=== PATIENT | male | born 1945 | race Caucasian/White ===

== ENCOUNTER 2018-07-24 15:23 | Inpatient (IN) | payer MEDICARE, OTHER ==
[~2018-07-24] VITALS: Ht 180.3 cm; Wt 86.2 kg
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
--- NOTE | ~2018-07-24 | WRIGHTHP ---
[place], [place] PATIENT HISTORY AND PHYSICAL EXAM [id number] UNIT #: [id number] ROOM: 316 DOCTOR: RICKY LOVELACE MD BIRTHDATE: [birth year] DOS: 07/25/2018 INITIAL PSYCHIATRIC EVALUATION CHIEF COMPLAINT: "I do not know why I am here." HISTORY OF PRESENT ILLNESS: This is a 72-year-old white male who was residing at the [facility] in [place], an assisted living facility. The patient was found wandering around the assisted living in a very confused state and was very difficult to redirect. Additionally, he was found aggressively rubbing another patient's back while trying to pull her sweat shirt off. He was most recently started on Risperdal and Depakote, but began having facial swelling and pill rolling tremor with a shuffling gait. The patient has been increasingly more combative while at the assisted living facility and grossly confused. He is admitted now to rule out organic factors and to attempt to stabilize on medication. PAST MEDICAL HISTORY: Remarkable for vitamin D deficiency, hypertension, coronary artery disease, hyperlipidemia, and seizure disorder. This patient socially does not drink alcohol, smoke cigarettes or use illicit drugs. STRENGTHS: Good verbal skills, ambulatory. WEAKNESSES: Poor coping skills, poor support system. MENTAL STATUS: He is alert and oriented to person, possibly place, not to time. Mood does seem to be somewhat depressed with anxious overtones. He is perplexed and bewildered. There is no gross taylor, hypomania, or psychosis. He processes information slowly and short term memory is very problematic. DIAGNOSIS: Major depression, recurrent and impulse control disorder, not otherwise specified, and Alzheimer's dementia. PLAN: I have already started him on Exelon 4.6 and increased his Namenda. I will increase the Namenda now to 10 b.i.d. I did start him on Celexa 10 mg a day to decrease the sexual impulsivity and combat the depression. We will engage in individual and zavala milieu activity, returning to the least restrictive environment when psychiatrically stable. [place], [place] PATIENT HISTORY AND PHYSICAL EXAM NAME: TRISHA LUCIO UNIT #: [id number] ROOM: 316 DOCTOR: RICKY LOVELACE MD BIRTHDATE: [birth year] RICKY LOVELACE MD CM:HISPHYS:PATIENT HISTORY AND PHYSICAL EXAMINATION [id number] RICKY LOVELACE MD 07/25/18 1152 interface
[2018-07-24] MEDS ORDERED: VITAMIN D31000 UNI1 PO (15:35)
[2018-07-24] MEDS ORDERED: MYRBETRIQ50 M1 PO (15:36)
[2018-07-24] MEDS ORDERED: SIMVASTATIN20 MG PO (15:37)
[2018-07-24] MEDS ORDERED: METOPROLOL SUCC25 M2 PO (15:38)
[2018-07-24] MEDS ORDERED: LISINOPRIL40 MG PO (15:38)
[2018-07-24] MEDS ORDERED: CITALOPRAM10 MG PO (15:39)
[2018-07-24] MEDS ORDERED: ASPIR LOW81 MG PO (15:39)
[2018-07-24] MEDS ORDERED: IRON325 M1 PO (15:40)
[2018-07-24] MEDS ORDERED: TAMSULOSIN HCL0.4 MG PO (15:41)
[2018-07-24] MEDS ORDERED: FINASTERIDE5 M1 PO (15:41)
[2018-07-24] MEDS ORDERED: LEVETIRACETAM250 MG PO (15:42)
[2018-07-24] MEDS ORDERED: Topicort 0.05%15 GM T (15:42)
[2018-07-24 20:11] VITALS: BP 138/56
[2018-07-25 06:34] LABS: BASO % 0.3 % (0.0-1.0); EOS # 0.1 10*3/uL (0.0-0.4); EOS % 1.8 % (1.0-4.0); HEMATOCRIT 42.4 % (42.0-52.0); HEMOGLOBIN 13.7 g/dl (14.0-18.0); LYMPH # 0.8 10*3/uL (1.3-4.4); LYMPH % 12.6 % (27.0-41.0); MEAN CELL VOLUME 84.5 fl (80.0-94.0); MEAN CORPUSCULAR HGB 27.3 pg (27.0-31.0); MEAN CORPUSCULAR HGB CONC 32.3 g/dl (33.0-37.0); MEAN PLATELET VOLUME 10.3 fl (9.6-12.3); MONO # 0.4 10*3/uL (0.1-1.0); MONO % 7.4 % (3.0-9.0); NEUT # 4.6 10*3/uL (2.3-7.9); NEUT % 76.7 % (47.0-73.0); PLATELET COUNT AUTOMATED 223 10*3/uL (130-400); RED BLOOD COUNT 5.02 10*6/uL (4.50-5.90); RED CELL DISTRI WIDTH 13.1 % (0-14.5)
[2018-07-25 07:09] LABS: CHLORIDE 102 mmol/L (98-107); SODIUM 139 mmol/L (136-145)
[2018-07-25 07:30] LABS: ALBUMIN 3.6 gm/dl (3.1-4.5); ALKALINE PHOSPHATASE 106 U/L (45-117); BUN 14 mg/dl (7-24); CHOLESTEROL 152 mg/dL (<200); CREATININE 0.93 mg/dL (0.70-1.30); HDL CHOLESTEROL 58 mg/dl (40-60); LDL CHOLESTEROL 83 mg/dL (9-159); SGOT/AST 18 IU/L (3-35); SGPT/ALT 14 U/L (12-78); TOTAL PROTEIN 7.4 gm/dL (6.4-8.2); TRIGLYCERIDES 55 mg/dl (<150); VALPROIC ACID (DEPAKENE) 67.7 ug/ml (50-100); VLDL CHOLESTEROL 11 mg/dL (6-40)
[2018-07-25 07:52] LABS: VITAMIN D, 25-HYDROXY 26.6 ng/mL (30-100)
[2018-07-25 08:48] VITALS: BP 168/98
[2018-07-25 10:45] VITALS: BP 142/80
[2018-07-25 12:08] LABS: BILIRUBIN NEGATIVE (NEGATIVE); BLOOD TRACE-INTACT (NEGATIVE); CLARITY SL CLOUDY (CLEAR); COLOR YELLOW (YELLOW); GLUCOSE NEGATIVE (NEGATIVE); KETONE TRACE (NEGATIVE); LEUKO ESTERASE NEGATIVE (NEGATIVE); NITRITE NEGATIVE (NEGATIVE); PH 7.5 (5.0-9.0)
[2018-07-25 12:20] LABS: BACTERIA 2+; MUCOUS 1+; RBC 21-30 rbc/hpf (0-2)
[2018-07-25 20:00] VITALS: BP 124/80
[2018-07-26 08:09] VITALS: BP 132/79
[2018-07-26 20:16] VITALS: BP 146/80
[2018-07-27 08:04] VITALS: BP 140/82
[2018-07-27 12:04] LABS: LEVETIRACETAM (KEPPRA) 716936 4.1 ug/mL (10.0-40.0)
[2018-07-27 19:46] VITALS: BP 140/66
[2018-07-28 08:37] VITALS: BP 136/75
[2018-07-28 19:52] VITALS: BP 155/87
[2018-07-29 08:00] VITALS: BP 156/85
[2018-07-29 19:54] VITALS: BP 148/82
[2018-07-30 08:12] VITALS: BP 158/84
[2018-07-30] MEDS ORDERED: EXELON13.3 MG/21 T (10:41)
[2018-07-30] MEDS ORDERED: DIVALPROEX SOD250 MG PO (10:41)
[2018-07-30] MEDS ORDERED: MEMANTINE HCL10 MG PO (10:41)
[2018-07-30] MEDS ORDERED: CITALOPRAM20 MG PO (10:41)
[2018-07-30 19:55] VITALS: BP 158/84
== END 2018-07-30 19:58 | disposition home or self-care (01) | DRG 885 ==
LOC: 3N 15:23
PROVIDERS: Psychiatry & Neurology Psychiatry
DX: F33.9 Major depressive disorder, recurrent, unspecified (principal); I10 Essential (primary) hypertension; I25.10 Atherosclerotic heart disease of native coronary artery without angina pectoris; G40.909 Epilepsy, unspecified, not intractable, without status epilepticus; D64.9 Anemia, unspecified; J30.9 Allergic rhinitis, unspecified; N40.0 Benign prostatic hyperplasia without lower urinary tract symptoms; E55.9 Vitamin D deficiency, unspecified; M17.10 Unilateral primary osteoarthritis, unspecified knee; E78.00 Pure hypercholesterolemia, unspecified; F41.9 Anxiety disorder, unspecified; F02.80 Dementia in other diseases classified elsewhere, unspecified severity, without behavioral disturbance, psychotic disturbance, mood disturbance, and anxiety; C61 Malignant neoplasm of prostate; G30.9 Alzheimer's disease, unspecified; F63.9 Impulse disorder, unspecified; Z87.898 Personal history of other specified conditions; Z79.899 Other long term (current) drug therapy; Z79.82 Long term (current) use of aspirin

== ENCOUNTER 2018-10-31 18:38 | Emergency (ER) | payer MEDICARE, OTHER ==
[~2018-10-31] VITALS: Ht 180.3 cm; Wt 72.6 kg
--- NOTE | ~2018-10-31 | EKG ---
[employer], [place] ELECTROCARDIOGRAM REPORT NAME: TRISHA LUCIO UNIT #: [id number] ROOM: DOCTOR: EPIPHANY DRAFT REPORT BIRTHDATE: [birth year] [facility] Test Date: 2018-10-31 Test Time: 19:40:39 Pat Name: TRISHA LUCIO Department: Room: Gender: Cellar Pumper: FAHAD : 1945 Requested By: MARITZA PALACIOS PA-C Order Number: [id number] Reading MD: Measurements Intervals [place] Rate: 44 P: 42 MO: 152 QRS: 0 QRSD: 101 T: 12 QT: 501 QTc: 429 Interpretive Statements Sinus bradycardia Probable anteroseptal infarct, old No previous ECG available for comparison CM:EKGRPT:ELECTROCARDIOGRAM REPORT [id number] MARITZA PALACIOS PA-C EPIPHANY DRAFT REPORT MARITZA PALACIOS PA-C
[~2018-10-31 18:38] MED LIST: ASPIR LOW81 MG PO; CITALOPRAM10 MG PO; CITALOPRAM20 MG PO; DIVALPROEX SOD250 MG PO; EXELON13.3 MG/21 T; FINASTERIDE5 M1 PO; IRON325 M1 PO; LEVETIRACETAM250 MG PO; LISINOPRIL40 MG PO; MEMANTINE HCL10 MG PO; METOPROLOL SUCC25 M2 PO; MYRBETRIQ50 M1 PO; SIMVASTATIN20 MG PO; TAMSULOSIN HCL0.4 MG PO; Topicort 0.05%15 GM T; VITAMIN D31000 UNI1 PO
[2018-10-31 19:40] LABS: BASO % 0.3 % (0.0-1.0); EOS # 0.2 10*3/uL (0.0-0.4); EOS % 3.2 % (1.0-4.0); HEMATOCRIT 37.5 % (42.0-52.0); HEMOGLOBIN 12.1 g/dl (14.0-18.0); LYMPH # 1.2 10*3/uL (1.3-4.4); LYMPH % 20.1 % (27.0-41.0); MEAN CELL VOLUME 87.8 fl (80.0-94.0); MEAN CORPUSCULAR HGB 28.3 pg (27.0-31.0); MEAN CORPUSCULAR HGB CONC 32.3 g/dl (33.0-37.0); MEAN PLATELET VOLUME 10.4 fl (9.6-12.3); MONO # 0.5 10*3/uL (0.1-1.0); MONO % 7.9 % (3.0-9.0); NEUT % 67.7 % (47.0-73.0); PLATELET COUNT AUTOMATED 206 10*3/uL (130-400); RED BLOOD COUNT 4.27 10*6/uL (4.50-5.90); RED CELL DISTRI WIDTH 13.7 % (0-14.5); WHITE BLOOD COUNT 5.9 10*3/uL (4.8-10.8)
[2018-10-31 19:41] LABS: BILIRUBIN NEGATIVE (NEGATIVE); BLOOD NEGATIVE (NEGATIVE); CLARITY CLEAR (CLEAR); COLOR YELLOW (YELLOW); GLUCOSE NEGATIVE (NEGATIVE); KETONE TRACE (NEGATIVE); LEUKO ESTERASE NEGATIVE (NEGATIVE); NITRITE NEGATIVE (NEGATIVE); PH 6.5 (5.0-9.0); SPECIFIC GRAVITY 1.025 (1.005-1.030)
[2018-10-31 19:57] LABS: BACTERIA 2+; EPITHELIAL CELLS 0-2; WBC 0-2 wbc/hpf (0-5)
[2018-10-31 19:57] LABS: ACETAMINOPHEN (TYLENOL) 5.5 ug/ml (10-30); ALBUMIN 3.1 gm/dl (3.1-4.5); ALKALINE PHOSPHATASE 99 U/L (45-117); BUN 20 mg/dl (7-24); CHLORIDE 106 mmol/L (98-107); CREATININE 0.98 mg/dL (0.70-1.30); POTASSIUM 3.7 mmol/L (3.5-5.1); SGOT/AST 17 IU/L (3-35); SGPT/ALT 10 U/L (12-78); SODIUM 140 mmol/L (136-145)
[2018-10-31 20:03] LABS: ETHYL ALCOHOL < 3.0 mg/dl (<3)
[2018-10-31 20:13] LABS: URINE AMPHETAMINES < 1000 (1000ng/ml); URINE BARBITURATES < 200 (200ng/ml); URINE BENZODIAZEPINES > 200 (200ng/ml); URINE CANNABINOIDS (THC) < 50 (50ng/ml); URINE COCAINE < 300 (300ng/ml); URINE METHADONE < 300 (300ng/ml); URINE OPIATES < 300 (300ng/ml)
[2018-10-31 20:14] LABS: URINE PHENCYCLIDINE < 25 (25ng/ml)
[2018-10-31] MEDS ORDERED: ALPRAZOLAM0.5 M2 PO (20:33)
[2018-10-31] MEDS ORDERED: ZOLPIDEM10 MG PO (20:34)
[2018-10-31] MEDS ORDERED: LOPERAMIDE HCL2 MG PO (20:45)
[2018-10-31] MEDS ORDERED: RIVASTIGMINE TAR6 M1 PO (23:30)
[2018-10-31] MEDS ORDERED: CETIRIZINE10 MG PO (23:37)
[2018-10-31] MEDS ORDERED: BENADRYL ITCH28.3 G1 T (23:39)
[2018-10-31] MEDS ORDERED: DEPAKOTE125 MG PO (23:40)
[2018-11-07] MEDS ORDERED: RISPERIDONE0.5 MG PO ×2 (08:52)
[2018-11-07] MEDS ORDERED: ARICEPT10 M1 PO (08:52)
[2018-11-07] MEDS ORDERED: MIRTAZAPINE15 M2 PO (08:52)
[2018-11-07] MEDS ORDERED: MEMANTINE HCL10 MG PO (08:52)
[2018-11-07] MEDS ORDERED: TRAZODONE50 MG PO (08:52)
== END 2018-10-31 22:47 | disposition admitted as inpatient to this hospital (09) ==
LOC: ED 18:38
PROVIDERS: Physician Assistant
DX: S00.81XA Abrasion of other part of head, initial encounter (principal); S40.212A Abrasion of left shoulder, initial encounter; F63.81 Intermittent explosive disorder; R41.82 Altered mental status, unspecified; Z79.82 Long term (current) use of aspirin; Z79.899 Other long term (current) drug therapy; W19.XXXA Unspecified fall, initial encounter; Y93.89 Activity, other specified; Y92.128 Other place in nursing home as the place of occurrence of the external cause; Y99.8 Other external cause status

== ENCOUNTER 2018-11-22 15:29 | Inpatient (IN) | payer OTHER ==
[~2018-11-22] VITALS: Ht 175.2 cm; Wt 78.0 kg
--- NOTE | ~2018-11-22 | PR ---
[place], [place] PROGRESS NOTE NAME: TRISHA LUCIO UNIT #: [id number] ROOM: 311 DOCTOR: RICKY LOVELACE MD BIRTHDATE: [birth year] DOS: 11/27/2018 INTERVAL NOTE CHIEF COMPLAINT: "Could I have some pop please." SUMMARY OF THE VISIT: The patient was interviewed in the dining area. He had most of his breakfast eaten and was working on a small piece of sausage as I approached. He was somewhat slouched over in his chair, but engaged readily in conversation. He was very pleasant and polite. He voiced no complaints. There was absolutely no agitation or aggression. Nurses report similar behavior as he has not been very labile or aggressive and has responded to redirection well. He does seem to be tolerating the current medication regimen well. There is minimal sedation. We will discuss with PT, OT to see if there is anything that can be done regarding his posture, otherwise will maintain his current psychotropic regimen. MENTAL STATUS: He is alert and oriented with time gaps. Mood does seem to be strongly trending towards euthymia. Affect is much more appropriate. There is no taylor or hypomania. There are no auditory or visual hallucinations. No delusions, no paranoia. Short-term memory continues to be problematic. PLAN: As mentioned above, I will maintain his current psychotropic regimen. We will discuss with PT, OT measures. We can take to improve his posture and gait, return him then to the least restrictive environment when psychiatrically stable. RICKY LOVELACE MD CM:PNTRANS 4 0 RICKY LOVELACE MD 11/27/1822 interface
--- NOTE | ~2018-11-22 | PR ---
[place], [place] PROGRESS NOTE NAME: TRISHA LUCIO UNIT #: [id number] ROOM: 311 DOCTOR: RICKY LOVELACE MD BIRTHDATE: [birth year] DOS: 11/28/2018 CHIEF COMPLAINT: "Good morning." SUMMARY OF THE VISIT: The patient was interviewed in the dining area. He was resting in his Samantha chair, slumped forward. It took several attempts for me to verbally prompt him and then put my hand gently on his shoulder for him to awake and engage in conversation with me. Nurses do report he does seem to get somewhat somnolent after he takes his Depakote. He has not exhibited any significant behaviors and has been pleasant and cooperative for the most part. He has not even been verbally aggressive in any manner. MENTAL STATUS: He is alert and oriented to person, place, not necessarily time. Mood seems to be trending towards euthymia. Affect more appropriate. There is no taylor, hypomania or psychosis. Short term memory continues to be problematic. PLAN: Given the fact that he has not exhibited significant behaviors, I will discontinue the Depakote, support and monitor, see if this will have less somnolence during the day and monitor for the presence of any agitation or aggression. At this point, we are looking towards discharge to [facility] in [place], [place]. RICKY LOVELACE MD CM:PNTRANS [id number] RICKY LOVELACE MD 11/29/18 0056 interface
--- NOTE | ~2018-11-22 | WRIGHTHP ---
[place], [place] PATIENT HISTORY AND PHYSICAL EXAM NAME: TRISHA LUCIO [facility] #: [id number] UNIT #: [id number] ROOM: 311 DOCTOR: RICKY LOVELACE MD BIRTHDATE: [birth year] DOS: 11/23/2018 INITIAL PSYCHIATRIC EVALUATION CHIEF COMPLAINT: "I don't need anything, thank you for taking care of me." HISTORY OF PRESENT ILLNESS: This is a 73-year-old white male who was readmitted to the [facility] from the [facility] in [place]. The patient apparently had been increasingly agitated and verbally and physically combative there. The patient has been episodically noncompliant with his medications as well and has put himself and others at significant risk. He is admitted now to rule out organic factors to attempt to stabilize on medication, to return to the least restrictive environment. PAST MEDICAL HISTORY: Remarkable for allergic rhinitis, Alzheimer dementia, benign prostatic hyperplasia, degenerative joint disease, hyperlipidemia, hypertension, major depression, normal pressure hydrocephalus, normocytic anemia, prediabetes, prostate carcinoma, seizure disorder, and vitamin D deficiency. SOCIAL HISTORY: He does not smoke cigarettes, use illicit drugs, or drink alcohol. ALLERGIES: He lists allergies to Ativan and Exelon. STRENGTHS: Good verbal skills. WEAKNESSES: Cognitive decline, poor coping skills. MENTAL STATUS: He is alert and oriented to person, place, not time. Mood is fairly euthymic. He was bright, pleasant, and very polite with me. He voiced no complaints, although does seem to be somewhat down and depressed made poor eye contact and was having a great deal of difficulty eating and did not touch much of his breakfast. There was no taylor or hypomania. No gross psychosis. Short term memory is very problematic, and he processes conversation slowly. DIAGNOSES: Intermittent explosive disorder, Alzheimer's dementia, major depression recurrent. PLAN: I will maintain him on the Aricept, Remeron, Risperdal, and Namenda; I did add Depakote to help control mood lability. I will check a Keppra and a Depakote level in the a.m. on 11/25/2018. We will monitor his behavior. Engage in individual and zavala milieu activity. Returning then to the least restrictive environment when psychiatrically stable. [place], [place] PATIENT HISTORY AND PHYSICAL EXAM NAME: TRISHA LUCIO UNIT #: [id number] ROOM: [facility] DOCTOR: RICKY LOVELACE MD BIRTHDATE: [birth year] RICKY LOVELACE MD CM:HISPHYS:PATIENT HISTORY AND PHYSICAL EXAMINATION 1 4 RICKY LOVELACE MD 11/23/18 0943 interface
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
--- NOTE | ~2018-11-22 | PR ---
[place], [place] PROGRESS NOTE NAME: TRISHA LUCIO UNIT #: [id number] ROOM: 311 DOCTOR: PRINCE HOSKINS CNP BIRTHDATE: [birth year] DOS: 11/24/2018 CHIEF COMPLAINT: "I am okay." SUMMARY OF VISIT: The patient was interviewed as he sat in the dining room after breakfast. He reports that he slept well and that his appetite is good. He reports feeling happy. Denies feeling anxious or agitated. Staff reports that the patient does exhibit agitation at times; however, he has been calm and cooperative this morning. No behaviors noted. MENTAL STATUS EXAMINATION: He is alert and oriented to himself. There is no overt taylor or hypomania noted. No delusions or paranoia noted. No auditory or visual hallucinations noted. His mood is calm. Affect is congruent with mood. Eye contact is poor. PLAN: I did discontinue trazodone 50 mg at bedtime due to the fact that the patient is also taking Remeron 15 mg at bedtime. This will be considered polypharmacy, so we will monitor how the patient does with just the Remeron. Continue to engage the patient in individual and zavala milieu activity. Continue fall and safety precautions. Plan is to return the patient to the least restrictive environment once he is considered psychiatrically stable. Prince Hoskins CNP CM:PNTRANS [id number] PRINCE HOSKINS CNP 11/25/18 0317 interface
--- NOTE | ~2018-11-22 | PR ---
[place], [place] PROGRESS NOTE NAME: TRISHA LUCIO UNIT #: [id number] ROOM: 311 DOCTOR: RICKY LOVELACE MD BIRTHDATE: [birth year] DOS: 11/26/2018 INTERVAL NOTE CHIEF COMPLAINT: "Morning." SUMMARY OF THE VISIT: The patient was interviewed as he was sitting in the dining area. He was sleeping, but did awake. He also was noticeably leaning forward. Nurses and other staff have noticed that this has been somewhat more pronounced over the last several days. He was pleasant and cooperative. He voiced no complaints, although he does seem to be somewhat depressed and despondent. MENTAL STATUS: He is alert and oriented to person, place, very approximate to time. Mood does seem to be trending towards euthymia. Affect is more appropriate. There is some residual depression noted. There was no agitation, aggression, hypomania or taylor. There are some sedation and somnolence noted this morning. PLAN: His valproic acid level is therapeutic at 52.5, so I will maintain his current Depakote dosing. Given the fact that he does seem to be somewhat sedate and somnolent, I will discontinue his Risperdal and see if the valproic acid alone will control his mood lability. This has not been exceptionally evident during his stay here and he has been more redirectable and pleasant for the most part. I will continue to have him engage in individual and zavala milieu activity with the plan to return to the least restrictive environment when psychiatrically stable. RICKY LOVELACE MD CM:PNTRANS [id number] RICKY LOVELACE MD 11/26/18 1121 interface
--- NOTE | ~2018-11-22 | PR ---
[place], [place] PROGRESS NOTE NAME: TRISHA LUCIO UNIT #: [id number] ROOM: 311 DOCTOR: PRINCE HOSKINS CNP BIRTHDATE: [birth year] DOS: 11/25/2018 CHIEF COMPLAINT: "I am doing good." SUMMARY OF THE VISIT: The patient was interviewed as he sat in the dining room. He reports that he is happy. He reports that he slept well. He reports that his appetite is good. Staff reports that he has had no behaviors. He is less agitated. He was agreed to be showered yesterday. MENTAL STATUS EXAMINATION: He is alert and oriented to self. No taylor or hypomania noted. He is pleasant and cooperative. No delusions or paranoia noted. No auditory or visual hallucinations noted. His mood is euthymic. His affect is congruent with mood. PLAN: Continue medications as prescribed. The patient seems to be tolerating medications without side effects. We will continue to encourage the patient to engage in individual and zavala milieu activity. Continue fall and safety precautions. Plan to return the patient to the least restrictive environment once considered psychiatrically stable. Prince Hoskins CNP CM:PNTRANS [id number] PRINCE HOSKINS CNP 11/25/18 1144 interface
[~2018-11-22 15:29] MED LIST changes: +ALPRAZOLAM0.5 M2 PO; +ARICEPT10 M1 PO; +BENADRYL ITCH28.3 G1 T; +CETIRIZINE10 MG PO; +DEPAKOTE125 MG PO; +LOPERAMIDE HCL2 MG PO; +MIRTAZAPINE15 M2 PO; +RISPERIDONE0.5 MG PO; +RIVASTIGMINE TAR6 M1 PO; +TRAZODONE50 MG PO; +ZOLPIDEM10 MG PO
[2018-11-22 17:24] VITALS: BP 157/87
[2018-11-22 18:19] VITALS: BP 157/87
[2018-11-22 18:47] LABS: BASO % 0.3 % (0.0-1.0); EOS # 0.1 10*3/uL (0.0-0.4); EOS % 2.3 % (1.0-4.0); HEMATOCRIT 40.2 % (42.0-52.0); HEMOGLOBIN 12.7 g/dl (14.0-18.0); LYMPH # 1.1 10*3/uL (1.3-4.4); LYMPH % 17.9 % (27.0-41.0); MEAN CELL VOLUME 86.6 fl (80.0-94.0); MEAN CORPUSCULAR HGB 27.4 pg (27.0-31.0); MEAN CORPUSCULAR HGB CONC 31.6 g/dl (33.0-37.0); MEAN PLATELET VOLUME 10.2 fl (9.6-12.3); MONO # 0.4 10*3/uL (0.1-1.0); MONO % 6.9 % (3.0-9.0); NEUT # 4.5 10*3/uL (2.3-7.9); NEUT % 72.1 % (47.0-73.0); PLATELET COUNT AUTOMATED 270 10*3/uL (130-400); RED BLOOD COUNT 4.64 10*6/uL (4.50-5.90); RED CELL DISTRI WIDTH 13.4 % (0-14.5); WHITE BLOOD COUNT 6.2 10*3/uL (4.8-10.8)
[2018-11-22 18:58] LABS: ALBUMIN 3.4 gm/dl (3.1-4.5); ALKALINE PHOSPHATASE 96 U/L (45-117); BUN 19 mg/dl (7-24); CHLORIDE 104 mmol/L (98-107); CREATININE 1.03 mg/dL (0.70-1.30); POTASSIUM 3.5 mmol/L (3.5-5.1); SGOT/AST 18 IU/L (3-35); SGPT/ALT 12 U/L (12-78); SODIUM 140 mmol/L (136-145); TOTAL PROTEIN 7.4 gm/dL (6.4-8.2)
[2018-11-22 19:05] LABS: THYROID STIM HORMONE (HS) 0.937 uIU/ml (0.358-4.75)
[2018-11-22 19:33] LABS: VITAMIN D, 25-HYDROXY 30.1 ng/mL (30-100)
[2018-11-22 19:55] VITALS: BP 118/60
[2018-11-23 07:06] LABS: BILIRUBIN NEGATIVE (NEGATIVE); BLOOD 3+ (NEGATIVE); CLARITY SL CLOUDY (CLEAR); COLOR YELLOW (YELLOW); GLUCOSE NEGATIVE (NEGATIVE); KETONE NEGATIVE (NEGATIVE); LEUKO ESTERASE NEGATIVE (NEGATIVE); NITRITE NEGATIVE (NEGATIVE); UROBILINOGEN 0.2 E.U./dl (0.2-1.0)
[2018-11-23 07:40] LABS: CHOLESTEROL 173 mg/dL (<200); HDL CHOLESTEROL 57 mg/dl (40-60); LDL CHOLESTEROL 103 mg/dL (9-159); TRIGLYCERIDES 64 mg/dl (<150); VLDL CHOLESTEROL 13 mg/dL (6-40)
[2018-11-23 07:53] LABS: BACTERIA 1+; RBC TNTC rbc/hpf (0-2)
[2018-11-23 07:56] VITALS: BP 115/72
[2018-11-23 19:53] VITALS: BP 138/73
[2018-11-24 08:17] VITALS: BP 121/72
[2018-11-24 19:57] VITALS: BP 129/89
[2018-11-25 08:02] VITALS: BP 132/67
[2018-11-25 19:47] VITALS: BP 134/71
[2018-11-26 07:20] VITALS: BP 129/70
[2018-11-26 19:49] VITALS: BP 118/69
[2018-11-27 07:36] VITALS: BP 128/72
[2018-11-27 20:00] VITALS: BP 130/76
[2018-11-28 08:27] VITALS: BP 149/89
[2018-11-28 20:52] VITALS: BP 145/80
[2018-11-29 08:00] VITALS: BP 155/89
[2018-11-29] MEDS ORDERED: ARICEPT10 M1 PO (10:10)
[2018-11-29] MEDS ORDERED: MIRTAZAPINE15 M1 PO (10:10)
== END 2018-11-29 12:59 | DRG 883 ==
LOC: 3N 15:29
PROVIDERS: ADMIT Psychiatry & Neurology Psychiatry
DX: F63.81 Intermittent explosive disorder (principal); F02.81 Dementia in other diseases classified elsewhere, unspecified severity, with behavioral disturbance; F33.2 Major depressive disorder, recurrent severe without psychotic features; G30.9 Alzheimer's disease, unspecified; F41.9 Anxiety disorder, unspecified; E78.00 Pure hypercholesterolemia, unspecified; E55.9 Vitamin D deficiency, unspecified; D64.9 Anemia, unspecified; M17.10 Unilateral primary osteoarthritis, unspecified knee; N40.1 Benign prostatic hyperplasia with lower urinary tract symptoms; R33.8 Other retention of urine; F63.9 Impulse disorder, unspecified; I10 Essential (primary) hypertension; J30.9 Allergic rhinitis, unspecified; E78.5 Hyperlipidemia, unspecified; G40.909 Epilepsy, unspecified, not intractable, without status epilepticus; E66.3 Overweight; R73.03 Prediabetes; Z85.46 Personal history of malignant neoplasm of prostate; Z82.0 Family history of epilepsy and other diseases of the nervous system; Z88.8 Allergy status to other drugs, medicaments and biological substances; Z79.899 Other long term (current) drug therapy